=== PATIENT | male | born 1995 | race Two or more races ===

== ENCOUNTER 2023-10-15 21:14 | Emergency (ER) | payer SELFPAY ==
[~2023-10-15] VITALS: Ht 180.3 cm; Wt 81.0 kg
[2023-10-15 21:17] VITALS: BP 132/94; PULSE 113; RESP 16; TEMP 98.3; O2SAT 97
[2023-10-15] MEDS: bacitracin 15gm ointment TP ONE (22:10)
[2023-10-15] MEDS ORDERED: OXYC-145 PO (22:20)
== END 2023-10-15 22:45 ==
LOC: ER 21:15
DX: S62.397A Other fracture of fifth metacarpal bone, left hand, initial encounter for closed fracture (principal); S80.211A Abrasion, right knee, initial encounter; Z02.89 Encounter for other administrative examinations; W22.8XXA Striking against or struck by other objects, initial encounter; Y93.89 Activity, other specified; Y92.89 Other specified places as the place of occurrence of the external cause; Y99.8 Other external cause status
CPT/HCPCS: 29125; 73130; 99283; 99284; A4565

== ENCOUNTER 2024-11-26 10:36 | Emergency (ER) | payer OTHER ==
[~2024-11-26] VITALS: Ht 177.8 cm; Wt 85.0 kg
[~2024-11-26 10:36] MED LIST: OXYC-145 PO
[2024-11-26 10:38] VITALS: BP 135/76; PULSE 107; RESP 18; O2SAT 99
--- NOTE | 2024-11-26 11:10 | RADIOLOGY REPORT ---
CLINICAL INDICATION: band saw cut TECHNIQUE: Right DI WRIST, COMPLETE (3VW MIN) Comparison: None FINDINGS/IMPRESSION: : Cortical irregularity at the dorsal aspect of the wrist seen on lateral view. This may represent a m ildly displaced fracture possibly of the lunate or triquetrum. Clinical correlation advised.
--- NOTE | 2024-11-26 11:37 | Physician Documentation ---
History of Present Illness ~ Chief Complaint: Laceration Stated Complaint: HAND LACERATION Time Seen by MD: 11:16 HPI 29-year-old male presents to the ED with a complaint of right wrist laceration. He states that he while working on-site he was using a metal band saw and sl ipped and caused a laceration on the lateral aspect of his right wrist. States that he has numbness in his right thumb. he does have full range of motion . Medication Reconciliation Allergies: Uncoded Allergies: BEES (Allergy, Unknown, 10/15/23) Scheduled PRN Oxycodone HCl/Acetaminophen (Percocet 5-325 mg Tablet), 1 TAB PO TID PRN PRN for FRACTURED HAND Past Medical History Past Medical History: No Pertinent History Past Surgical History: no surgical history Alcohol Use: Occasionally Lives In: Home Review of Systems All Other Systems at this time: Reviewed and Negative ROS As stated above in the HPI, otherwise all systems are reviewed and negative. Physical Exam Vital Signs: Temperature: 97.4, Source: Temporal, Heart Rate: 107, Respiratory Rate: 18, BP: 135/76, Pulse Oximetry: 99, Weight: 85.000 Oxygen Flow Rate: 0 Physical Exam General: Alert, no apparent distress. Extremities: Normal range of motion, decreased sensation ,right thumb 5 cm laceration lateral aspect right wrist, bleeding controlled Neurologic: Oriented x4. Psychiatric: Normal mood and affect. Skin: Normal color, warm and dry. No edema, no ecchymosis. Procedures Laceration/Wound Repair Laceration : Anesthesia: Lidocaine Prep: betadine, irrigated by nurse Margins: revised Repaired: skin Wound Repaired With: sutures Suture Size/Type: 4-0 Number of Superficial Sutures: 8 Tolerated Procedure Well?: yes, no complications Progress Results/Orders Results/Orders Orders - BRADLEY MOLINA NP Laceration/I&D Tray Set Up (11/26/24 ) Completed Orders - BRADLEY MOLINA NP Tetanus/Pertuss/Diph Acell/Pf (Boostrix (11/26/24 11:45) Lidocaine 1% 30ml Vial (Xylocaine 1% Via (11/26/24 11:42) Medications Received in ER Medications (Trade) Dose Ordered Sig/Malaika Route PRN Reason Start Time Stop Time Status Last Admin Dose Admin (Boostrix vaccine syringe) 0.5 ml ONCE ONCE IMVAC 11/26/24 11:45 11/26/24 11:46 DC 11/26/24 12:09 0.5 ML Vital Signs 11/26/24 10:38 Temp 97.4 Pulse 107 Resp 18 B/P (MAP) 135/76 Pulse Ox 99 O2 Flow Rate 0 Medical Decision Making Findings Patient required suture closure secondary to a band saw laceration. I did speak with Dr. Barajas the local hand specialist and he graciously agreed to take the patient on in his office. My primary concerns are the numbness and decreased range of motion in the patient's right thumb.. Going to place him on antibiotics , update tetanus and have him follow up with Dr. Barajas Departure Disposition: HOME / SELF CARE / HOMELESS Impression: Primary Impression: Laceration Discharge Instructions: Laceration Care, Adult, Sbox-yz-Wide Additional Instructions: Sure to make an appointment with Dr. Barajas at his office for further evaluation of your hand. Important that you do this within a short period of time to improve the likelihood of a good outcome and full function of your hand Referrals: NO PRIMARY CARE PROVIDER (PCP) MICHAEL BARAJAS Jr., MD Prescriptions Doxycycline Monohydrate (Doxycycline Monohydrate) 100 Mg Capsule 1 CAP PO Q12H for 10 Days, #20 CAP Prov: BRADLEY MOLINA NP 11/26/24 Education Educated: Patient Educated regarding: diagnosis Signature Scribe Signature: g Attestation: Scribed for Bradley Molina [employer] by Bradley Luong NP . 11/26/24 12:54 BRADLEY MOLINA NP Nov 26, 2024 11:37
[2024-11-26] MEDS: LIDOcaine 1% 30ml preserv. free vial SQ STA (12:09)
[2024-11-26] MEDS: TETanus/Pertussis (Acell)/Diphther VAC/PF (Tdap-Adult) 0.5ml syringe IMVAC ONE (12:09)
[2024-11-26] MEDS ORDERED: DOXY-460 PO (12:56)
[2024-11-26 13:08] VITALS: TEMP 97.4
== END 2024-11-26 13:10 | disposition home or self-care (01) ==
LOC: ER 10:37
DX: S61.511A Laceration without foreign body of right wrist, initial encounter (principal); X58.XXXA Exposure to other specified factors, initial encounter; Y93.89 Activity, other specified; Y92.89 Other specified places as the place of occurrence of the external cause; Y99.8 Other external cause status
CPT/HCPCS: 12002; 73110; 90471; 90715; 99283; J7030; A6258; A6449